=== PATIENT | female | born 1960 | race Hispanic/Latino ===

== ENCOUNTER → 2019-01-01 | Day surgery (SDC) | payer OTHER ==
[~2019-01-01] MED LIST: AZATHIOPRINE50 MG PO; FENTANYL CITRATE/PF 100MCG/2 ML INJ ONE; FOLIC ACID1 MG PO; GABAPENTIN PO; GLIMEPIRIDE4 MG PO; HYOSCYAMINE SULFATE 0.5 MG/ML INJ ONE; MELOXICAM PO; METFORMIN HCL500 MG PO; METOCLOPRAMIDE10 MG PO; METOTREXATE IM; MIDAZOLAM HCL 5 MG/ML VIAL ONE; PANTOPRAZOLE SO40 MG PO; PREDNISONE5 MG PO; PROPOFOL IV EMULSION 10 MG/ML 50 ML VIAL ONE; REGLAN PO; SUCRALFATE1 G/10 ML PO; Vit D PO; [UNRECOGNIZED DRUG - OTHER] PO
--- OUTSIDE RECORDS SUMMARY | 2019-01-01 09:54 | XMS REPORT ---
Author Benigno Goncalves [facility] eClinicalWorks Address Unknown Phone Unavailable Care Team Providers Care Associate Professor Of Counseling Name Role Phone Benigno Rahman Unavailable Allergies, Adverse Reactions, Alerts Substance Reaction Event Type N.K.D.A. Info Not Available Non Drug Allergy Problems Problem Type Condition Code Onset Dates Condition Status Problem Body mass index (BMI) 28.0-28.9, adult Z68.28 Active Problem Carpal tunnel syndrome, right upper limb G56.01 Active Problem Dry mouth, unspecified R68.2 Active Problem Osteoarthritis cervical spine M47.812 Active Problem Platelets decreased D69.6 Active Problem Low back pain M54.5 Active Problem Trochanteric bursitis, right hip M70.61 Active Problem Carpal tunnel syndrome, left upper limb G56.02 Active Problem Acute right-sided low back pain without sciatica M54.5 Active Problem Neck pain M54.2 Active Assessment Hip pain M25.559 Active Assessment Low back pain M54.5 Active Assessment Rheumatoid arthritis without rheumatoid factor, multiple sites M06.09 Active Problem Fibromyalgia M79.7 Active Assessment Neck pain M54.2 Active Problem Other jail (current) drug therapy Z79.899 Active Assessment Other jail (current) drug therapy Z79.899 Active Problem Rheumatoid arthritis without rheumatoid factor, multiple sites M06.09 Active Medications Medication Code System Code Instructions Start Date End Date Status Dosage Vitamin D [facility] [address]-84 1000 UNIT Orally Once a day Active 1 capsule PredniSONE [facility] 23553198190 5 MG Orally Once a day Active 1 tablet Metoclopramide HCl [facility] 76961630719 10 MG Orally twice a day Active 1 tablet Sucralfate [facility] 09902466734 1 GM Orally Twice a day Active 1 tablet on an empty stomach Vitamin B-12 ND 26368308403 1000 MCG Orally Once a day Active 1 tablet Iron [facility] 96527438924 325 (65 Fe) MG Orally Once a day Active 1 tablet Calcium NDC 0 1000 mg orally daily Active one tab Pantoprazole Sodium [facility] 49722301718 40 MG Orally Once a day Active 2 tablets Vital Signs Date/Time: Nov 25, 2017 BMI 25.52 Index Weight 144.1 lbs Height 63 in Temperature 97.6 F Cardiac Monitoring Heart Rate 72 /min Blood Pressure Diastolic 60 mm Hg Blood Pressure Systolic 110 mm Hg Results Name Result Date Reference Range Unit Abnormality Flag COMPREHENSIVE METABOLIC PANEL W/EGFR ----CALCIUM 9.1 65035059 8.6-10.4 mg/dL N ----CARBON DIOXIDE 29 20171125 20-31 mmol/L N ----ALT 13 20171125 6-29 U/L N ----CREATININE 0.53 20171125 0.50-1.05 mg/dL N ----AST 16 20171125 10-35 U/L N ----eGFR NON-AFR. GU[place]AN 107 [id number] > OR=60 mL/min/1.73m2 N ----ALKALINE PHOSPHATASE 77 20171125 33-130 U/L N ----eGFR 124 78039514 > OR=60 mL/min/1.73m2 N ----BILIRUBIN, TOTAL 1.2 37629656 0.2-1.2 mg/dL N ----BUN/CREATININE RATIO NOT APPLICABLE 20171125 6-22 (calc) ----ALBUMIN/GLOBULIN RATIO 1.4 87951628 1.0-2.5 (calc) N ----SODIUM 142 20171125 135-146 mmol/L N ----GLOBULIN 3.0 20171125 1.9-3.7 g/dL (calc) N ----POTASSIUM 3.8 20171125 3.5-5.3 mmol/L N ----GLUCOSE 88 94093750 65-99 mg/dL N ----CHLORIDE 106 20171125 98-110 mmol/L N ----ALBUMIN 4.1 10217694 3.6-5.1 g/dL N ----UREA NITROGEN (BUN) 12 20171125 7-25 mg/dL N ----PROTEIN, TOTAL 7.1 40990356 6.1-8.1 g/dL N SED RATE BY MODIFIED WESTERGREN ----SED RATE BY MODIFIED WESTERGREN 2 [id number] < OR=30 mm/h N C-REACTIVE PROTEIN ----C-REACTIVE PROTEIN 0.8 54689551 <8.0 mg/L N CBC (INCLUDES DIFF/PLT) ----MCH 29.1 56472643 27.0-33.0 pg N ----MCV 86.7 99859331 80.0-100.0 fL N ----RDW 14.0 79605239 11.0-15.0 % N ----MCHC 33.6 72207737 32.0-36.0 g/dL N ----EOSINOPHILS 0.8 57851719 % N ----BASOPHILS 0.3 33110007 % N ----MPV 10.3 74891197 7.5-12.5 fL N ----ABSOLUTE NEUTROPHILS 2088 68637362 4021-1313 cells/uL N ----PLATELET COUNT 97 10689537 140-400 Thousand/uL L ----ABSOLUTE EOSINOPHILS 29 77209743 15-500 cells/uL N ----HEMOGLOBIN 12.9 73087628 11.7-15.5 g/dL N ----ABSOLUTE BASOPHILS 11 64378160 0-200 cells/uL N ----HEMATOCRIT 38.4 05190034 35.0-45.0 % N ----WHITE BLOOD CELL COUNT 3.6 87941774 3.8-10.8 Thousand/uL L ----ABSOLUTE LYMPHOCYTES 1213 42498899 850-3900 cells/uL N ----ABSOLUTE MONOCYTES 259 32801449 200-950 cells/uL N ----RED BLOOD CELL COUNT 4.43 99182738 3.80-5.10 Million/uL N ----MONOCYTES 7.2 90484324 % N ----PLATELET ESTIMATION DECREASED 63027516 ADEQUATE A ----NEUTROPHILS 58 10092551 % N ----LYMPHOCYTES 33.7 57645795 % N Summary Purpose eClinicalWorks Submission
--- OUTSIDE RECORDS SUMMARY | 2019-01-01 09:54 | XMS REPORT ---
Author Benigno Goncalves [facility] eClinicalWorks Address Unknown Phone Unavailable Care Team Providers Care Restaurant Kitchen Manager Name Role Phone Benigno Rahman Unavailable Allergies, [...] Active Problem Neck pain M54.2 Active Assessment Rheumatoid arthritis without rheumatoid factor, multiple sites M06.09 Active Problem Fibromyalgia M79.7 Active Assessment Low back pain M54.5 Active Problem Other intermediate accountant (current) drug therapy Z79.899 Active Assessment Other correction (current) drug therapy Z79.899 Active Problem Rheumatoid arthritis without rheumatoid factor, multiple sites M06.09 Active Medications Medication Code System Code Instructions Start Date End Date Status Dosage Pantoprazole Sodium [facility] 59655639579 40 MG Orally Once a day Active 2 tablets Metoclopramide HCl [facility] 60247836201 10 MG Orally twice a day Active 1 tablet Vitamin B-12 ND 66268406307 1000 MCG Orally Once a day Active 1 tablet Vitamin D [facility] [address]-18 1000 UNIT Orally Once a day Active 1 capsule PredniSONE [facility] 02818240618 5 MG Orally Once a day Active 1 tablet Iron [facility] 39047567833 325 (65 Fe) MG Orally Once a day Active 1 tablet Sucralfate [facility] 91991786947 1 GM Orally Twice a day Active 1 tablet on an empty stomach Calcium NDC 0 1000 mg orally daily Active one tab Vital Signs Date/Time: March 10, 2018 BMI 28.52 Index Weight 161 lbs Height 63 in Temperature 97.4 F Cardiac Monitoring Heart Rate 80 /min Blood Pressure Diastolic 86 mm Hg Blood Pressure Systolic 118 mm Hg Results No Known Results Summary Purpose eClinicalWorks Submission
--- OUTSIDE RECORDS SUMMARY | 2019-01-01 09:54 | XMS REPORT ---
Author Author Benigno Rahman Organization eClinicalWorks Address Unknown Phone Unavailable Care Team Providers Care Classification Officer Name Role Phone Benigno Rahman CP Unavailable Allergies No Known Allergies Problems Problem Type Condition Code Onset Dates [...] M54.5 Active Problem Neck pain M54.2 Active Problem Fibromyalgia M79.7 Active Problem Other intermediate project manager (current) drug therapy Z79.899 Active Problem Rheumatoid arthritis without rheumatoid factor, multiple sites M06.09 Active Medications No Known Medications Results No Known Results Summary Purpose eClinicalWorks Submission
--- OUTSIDE RECORDS SUMMARY | 2019-01-01 09:54 | XMS REPORT ---
Author Author Benigno Rahman [facility] eClinicalWorks Address Unknown Phone Unavailable Care Team Providers Care Steam Tank Operator Name Role Phone Benigno Rahman Unavailable Allergies, [...] Active Problem Neck pain M54.2 Active Assessment Neck pain M54.2 Active Problem Fibromyalgia M79.7 Active Assessment Osteoarthritis cervical spine M47.812 Active Problem Other care home (current) drug therapy Z79.899 Active Assessment Rheumatoid arthritis without rheumatoid factor, multiple sites M06.09 Active Problem Rheumatoid arthritis without rheumatoid factor, multiple sites M06.09 Active Medications Medication Code System Code Instructions Start Date End Date Status Dosage Vitamin B-12 ND 61945052957 1000 MCG Orally Once a day Active 1 tablet Vitamin D [facility] [address]-17 1000 UNIT Orally Once a day Active 1 capsule Pantoprazole Sodium ND 77185403252 40 MG Orally Once a day Active 2 tablets Sulfasalazine ND 74927139724 500 MG Orally bid Aug 18, 2018 February 14, 2019 Active 2 tablets Sucralfate ND 54875674402 1 GM Orally Twice a day Active 1 tablet on an empty stomach Calcium NDC 0 1000 mg orally daily Active one tab PredniSONE ND 22443072938 5 MG Orally Once a day April 25, 2019 Active 1 tablet Metoclopramide HCl [facility] 85356641731 10 MG Orally twice a day Active 1 tablet Vital Signs Date/Time: Oct 27, 2018 BMI 30.23 Index Weight 170.7 lbs Height 63 in Temperature 97.2 F Cardiac Monitoring Heart Rate 74 /min Blood Pressure Diastolic 80 mm Hg Blood Pressure Systolic 120 mm Hg Results No Known Results Summary Purpose eClinicalWorks Submission
--- OUTSIDE RECORDS SUMMARY | 2019-01-01 09:54 | XMS REPORT | Continuity of Care Document ---
Author Author [facility] Interface Address Unknown Phone Unavailable Problems Problem Status Onset Date Classification Date Reported Comments Source 787.01 - NAUSEA WITH VOM Active 07/11/2012 [facility] Body mass index 28.0-28.9, adult Active Problem 11/05/2018 Jostin Rahman Carpal tunnel syndrome, right upper limb Active Problem 11/05/2018 Jostin Rahman Dry mouth, unspecified Active Problem 11/05/2018 Jostin Rahman Osteoarthritis cervical spine Active Problem 11/05/2018 Jostin Rahman Platelets decreased Active Problem 11/05/2018 Jostin Rahman Low back pain Active Problem 11/05/2018 Jostin Rahman Trochanteric bursitis, right hip Active Problem 11/05/2018 Jostin Rahman Carpal tunnel syndrome, left upper limb Active Problem 11/05/2018 Jostin Rahman Acute right-sided low back pain without sciatica Active Problem 11/05/2018 Jostin Rahman Neck pain Active Problem 11/05/2018 Jostin Rahman Fibromyalgia Active Problem 11/05/2018 Jostin Rahman Other skilled nursing drug therapy Active Problem 11/05/2018 Jostin Rahman Rheumatoid arthritis without rheumatoid factor, multiple sites Active Diagnosis 11/05/2018 Jostin Rahman Hip pain Active Diagnosis 12/14/2017 Jostin Rahman Medications Medication Details Route Status Patient Instructions Ordering Provider Order Date Source PredniSONE 1 tablet Orally Active 5 MG Orally Once a day [place] 04/25/2019 Jostin Rahman Sulfasalazine 2 tablets Orally Active 500 MG Orally bid Rahman 08/18/2018 Jostin Rahman Calcium one tab orally Active 1000 mg orally daily Rahman Jostin Rahman Vitamin D 1 capsule Orally Active 1000 UNIT Orally Once a day Rahman Jostin Rahman Metoclopramide HCl 1 tablet Orally Active 10 MG Orally twice a day Rahman Jostin Rahman Sucralfate 1 tablet on an empty stomach Orally Active 1 GM Orally Twice a day Rahman Jostin Rahman Pantoprazole Sodium 2 tablets Orally Active 40 MG Orally Once a day Rahmandouglas Rahman PredniSONE 1 tablet Orally Active 5 MG Orally Once a day Josiah Rahman Vitamin B-12 1 tablet Orally Active 1000 MCG Orally Once a day Josiah Rahman Iron 1 tablet Orally Active 325 (65 Fe) MG Orally Once a day Josiah Rahman Allergies, Adverse Reactions, Alerts Substance Category Reaction Severity Reaction type Status Date Reported Comments Source N.K.D.A. Adverse Reaction Info Not Available Adverse Reaction Active 10/27/2018 Jostin Rahman Immunizations Immunization Date Given Site Status Last Updated Comments Source Results Order Name Results Value Reference Range Date Interpretation Comments Source Chest 2 views Chest 2 views Exam: Two-view chest x-ray Reason for Exam: Obesity Comparison Exam: None Discussion: Cardiomediastinal silhouette is within normal limits. Both hemidiaphragms well visualized. No pulmonary edema or pleural effusions. No focal lung consolidations. Trachea is midline. No acute bony abnormalities. Impression: 1. Unremarkable Two-view chest x-ray. 10/22/2013 - - Read by: Alphonso Srinivasan Dictated Date/time: 10/22/13 14:44 Electronically Signed by: Alphonso Srinivasan MD 10/22/13 14:45 FINAL REPORT JUAN Guy Vital Signs Vital Sign Value Date Comments Source Weight 170.7 10/27/2018 Jostin [place]locker Height 63 10/27/2018 Jostin Rahman Temperature Oral (F) 97.2 F 10/27/2018 Jostin Rahman Heart Rate 74 10/27/2018 Jostin Rahman Diastolic (mm Hg) 80 10/27/2018 Jostin Rahman Systolic (mm Hg) 120 10/27/2018 Jostin Rahman Weight 171.1 08/18/2018 Jostin Rahman Height 63 08/18/2018 Jostin Rahman Temperature Oral (F) 97.2 F 08/18/2018 Jostin Rahman Heart Rate 76 08/18/2018 Jostin Rahman Diastolic (mm Hg) 74 08/18/2018 Jostin Rahman Systolic (mm Hg) 116 08/18/2018 Jostin Rahman Weight 161 03/10/2018 Jostin Rahman Height 63 03/10/2018 Jostin Rahman Temperature Oral (F) 97.4 F 03/10/2018 Jostin Rahman Heart Rate 80 03/10/2018 Jostin Rahman Diastolic (mm Hg) 86 03/10/2018 Jostin Rahman Systolic (mm Hg) 118 03/10/2018 Jostin Rahman Weight 144.1 11/25/2017 Jostin Rahman Height 63 11/25/2017 Jostin Rahman Temperature Oral (F) 97.6 F 11/25/2017 Jostin Rahman Heart Rate 72 11/25/2017 Jostin Rahman Diastolic (mm Hg) 60 11/25/2017 Jostin Rahman Systolic (mm Hg) 110 11/25/2017 Jostin Rahman Encounters Location Location Details Encounter Type Encounter Number Reason For Visit Attending Provider ADM Date DC Date Status Source OD [id number] 787.01 - NAUSEA WITH VOM [place]APO [place] 07/16/2012 Active [facility] [place] Procedures Procedure Code Date Perfomer Comments Source
--- OUTSIDE RECORDS SUMMARY | 2019-01-01 09:54 | XMS REPORT ---
Author Author Benigno Rahman [facility] eClinicalWorks Address Unknown Phone Unavailable Care Team Providers Care Welt Trimming Machine Operator Name Role Phone Benigno Rahman Unavailable [...] Active Problem Neck pain M54.2 Active Assessment Osteoarthritis cervical spine M47.812 Active Assessment Other correction (current) drug therapy Z79.899 Active Assessment Low back pain M54.5 Active Assessment Rheumatoid arthritis without rheumatoid factor, multiple sites M06.09 Active Problem Fibromyalgia M79.7 Active Assessment Fibromyalgia M79.7 Active Problem Other marine oil terminal superintendent (current) drug therapy Z79.899 Active Assessment Neck pain M54.2 Active Problem Rheumatoid arthritis without rheumatoid factor, multiple sites M06.09 Active Medications Medication Code System Code Instructions Start Date End Date Status Dosage Calcium NDC 0 1000 mg orally daily Active one tab Vitamin D [facility] [address]-83 1000 UNIT Orally Once a day Active 1 capsule Metoclopramide HCl [facility] 11217631532 10 MG Orally twice a day Active 1 tablet Sulfasalazine ND 83574737305 500 MG Orally bid Aug 18, 2018 February 14, 2019 Active 1 tablet Sucralfate ND 24312055596 1 GM Orally Twice a day Active 1 tablet on an empty stomach Pantoprazole Sodium [facility] 45207132646 40 MG Orally Once a day Active 2 tablets PredniSONE ND 59051043511 5 MG Orally Once a day Active 1 tablet Vitamin B-12 [facility] 34126810387 1000 MCG Orally Once a day Active 1 tablet Vital Signs Date/Time: Aug 18, 2018 BMI 30.31 Index Weight 171.1 lbs Height 63 in Temperature 97.2 F Cardiac Monitoring Heart Rate 76 /min Blood Pressure Diastolic 74 mm Hg Blood Pressure Systolic 116 mm Hg Results No Known Results Summary Purpose eClinicalWorks Submission
--- OUTSIDE RECORDS SUMMARY | 2019-01-01 09:54 | XMS REPORT ---
Author Author Benigno Rahman Organization eClinicalWorks Address Unknown Phone Unavailable Care Team Providers Care Lobster Fisherman Name Role Phone Benigno Rahman CP Unavailable [...] Active Problem Fibromyalgia M79.7 Active Problem Other terminal carman (current) drug therapy Z79.899 Active Problem Rheumatoid arthritis without rheumatoid factor, multiple sites M06.09 Active Medications No Known Medications Results No Known Results Summary Purpose eClinicalWorks Submission
--- OUTSIDE RECORDS SUMMARY | 2019-01-01 09:54 | XMS REPORT ---
Author Author Benigno Rahman Organization eClinicalWorks Address Unknown Phone Unavailable Care Team Providers Care Stamp Machine Servicer Name Role Phone Benigno Rahman CP Unavailable [...] Active Problem Fibromyalgia M79.7 Active Problem Other senior benefits specialist (current) drug therapy Z79.899 Active Problem Rheumatoid arthritis without rheumatoid factor, multiple sites M06.09 Active Medications No Known Medications Results No Known Results Summary Purpose eClinicalWorks Submission
--- OUTSIDE RECORDS SUMMARY | 2019-01-01 09:55 | XMS REPORT ---
Author Author [facility] Address Unknown Phone Unavailable Care Team Providers Care [employer] Name Role Phone UNKNOWN, REFFERING PP Unavailable Rae TOVAR Unavailable Unavailable Problems This patient has no known problems. Allergies, Adverse Reactions, Alerts This patient has no known allergies or adverse reactions. Medications This patient has no known medications. Results Test Description Test Time Test Comments Text Results Atomic Results Result Comments RBC, Crossmatch 2 2017-07-07 00:13:00 Product 1 Code (test code=PRODCODE1) E0336 Unit 1 ID (test code=UNITID1) [id number] Unit 1 ABO (test code=UNITABO1) B Unit 1 Rh (test code=UNITRH1) POS Unit 1 Interp (test code=UNITINTERP1) Compatible Unit 1 Status (test code=UNITSTAT1) RE Product 2 Code (test code=PRODCODE2) E0336 Unit 2 ID (test code=UNITID2) [id number] Unit 2 ABO (test code=UNITABO2) B Unit 2 Rh (test code=UNITRH2) POS Unit 2 Interp (test code=UNITINTERP2) Compatible Unit 2 Status (test code=UNITSTAT2) RE POC Glucose, [id number] 16:37:00* Test Item Value Reference Range Comments POC Glucose (test code=POCGLUC) 112 mg/dL 70-115 If you consider your patient critically ill, the [employer] Accu-Chek InformII metershould not be used for Glucose determinations.Draw a venous Glucose and send to the Main Lab for Analysis. POC Glucose, [id number] 13:44:00* Test Item Value Reference Range Comments POC Glucose (test code=POCGLUC) 131 mg/dL 70-115 If you consider your patient critically ill, the [employer] Accu-Chek InformII metershould not be used for Glucose determinations.Draw a venous Glucose and send to the Main Lab for Analysis. POC Glucose, [id number] 09:10:00* Test Item Value Reference Range Comments POC Glucose (test code=POCGLUC) 220 mg/dL 70-115 Notify RN or MDIf you consider your patient critically ill, the [employer] Accu-Chek InformII metershould not be used for Glucose determinations.Draw a venous Glucose and send to the Main Lab for Analysis. POC Glucose, [id number] 07:45:00* Test Item Value Reference Range Comments POC Glucose (test code=POCGLUC) 115 mg/dL 70-115 If you consider your patient critically ill, the [employer] Accu-Chek InformII metershould not be used for Glucose determinations.Draw a venous Glucose and send to the Main Lab for Analysis. CBC with [id number] 05:56:00* Test Item Value Reference Range Comments WBC (test code=WBC) 4.4 K/cumm 4.4-10.5 RBC (test code=RBC) 3.82 M/cumm 3.75-5.20 Hemoglobin (test code=HGB) 10.9 gm/dL 12.2-14.8 Hematocrit (test code=HCT) 32.3 % 36.5-44.4 MCV (test code=MCV) 84.6 fL 80-100 MCH (test code=MCH) 28.5 pg 27.0-32.5 MCHC (test code=MCHC) 33.7 g/dL 32.0-37.5 RDW (test code=RDW) 16.3 % 11.5-14.5 Platelet Count (test code=PLTCT) 135 K/cumm 140-440 MPV (test code=MPV) 8.6 fL Diff Method (test code=DIFFM) Auto Neutrophil (test code=NEUT) 84.8 % 36-70 Lymphocyte (test code=LYMPH) 11.1 % 12-44 Monocyte (test code=MONO) 3.6 % 0-11 Eosinophil (test code=EOS) 0.5 % 0-7 Basophil (test code=BASO) 0.0 % 0-2 Neutro Abs (test code=ANEUT) 3.7 K/cumm 1.6-7.4 Lymph Abs (test code=ALYMPH) 0.5 K/cumm 0.5-4.6 Mcintosh Abs (test code=AMONO) 0.2 K/cumm 0.0-1.2 Eos Abs (test code=AEOS) 0.02 K/cumm 0.00-0.74 Baso Abs (test code=ABASO) 0.0 K/cumm 0.00-0.21 POC Glucose, [id number] 05:16:00* Test Item Value Reference Range Comments POC Glucose (test code=POCGLUC) 138 mg/dL 70-115 If you consider your patient critically ill, the [employer] Accu-Chek InformII metershould not be used for Glucose determinations.Draw a venous Glucose and send to the Main Lab for Analysis. POC Glucose, [id number] 00:54:00* Test Item Value Reference Range Comments POC Glucose (test code=POCGLUC) 168 mg/dL 70-115 If you consider your patient critically ill, the [employer] Accu-Chek InformII metershould not be used for Glucose determinations.Draw a venous Glucose and send to the Main Lab for Analysis. POC Glucose, [id number] 21:52:00* Test Item Value Reference Range Comments POC Glucose (test code=POCGLUC) 137 mg/dL 70-115 If you consider your patient critically ill, the [employer] Accu-Chek InformII metershould not be used for Glucose determinations.Draw a venous Glucose and send to the Main Lab for Analysis. CBC with [id number] 10:24:00* Test Item Value Reference Range Comments WBC (test code=WBC) 5.2 K/cumm 4.4-10.5 RBC (test code=RBC) 4.12 M/cumm 3.75-5.20 Hemoglobin (test code=HGB) 11.9 gm/dL 12.2-14.8 Hematocrit (test code=HCT) 35.1 % 36.5-44.4 MCV (test code=MCV) 85.2 fL 80-100 MCH (test code=MCH) 28.8 pg 27.0-32.5 MCHC (test code=MCHC) 33.8 g/dL 32.0-37.5 RDW (test code=RDW) 16.6 % 11.5-14.5 Platelet Count (test code=PLTCT) 116 K/cumm 140-440 MPV (test code=MPV) 8.8 fL Diff Method (test code=DIFFM) Auto Neutrophil (test code=NEUT) 74.3 % 36-70 Lymphocyte (test code=LYMPH) 17.6 % 12-44 Monocyte (test code=MONO) 7.2 % 0-11 Eosinophil (test code=EOS) 0.8 % 0-7 Basophil (test code=BASO) 0.1 % 0-2 Neutro Abs (test code=ANEUT) 3.8 K/cumm 1.6-7.4 Lymph Abs (test code=ALYMPH) 0.9 K/cumm 0.5-4.6 Mcintosh Abs (test code=AMONO) 0.4 K/cumm 0.0-1.2 Eos Abs (test code=AEOS) 0.04 K/cumm 0.00-0.74 Baso Abs (test code=ABASO) 0.0 K/cumm 0.00-0.21 Plateletpheresis 1 [id number] 06:00:00* Test Item Value Reference Range Comments Product 1 Code (test code=PRODCODE1) E3088 Unit 1 ID (test code=UNITID1) [id number] Unit 1 ABO (test code=UNITABO1) AB Unit 1 Rh (test code=UNITRH1) POS Unit 1 Status (test code=UNITSTAT1) PT POC Glucose, [id number] 21:07:00* Test Item Value Reference Range Comments POC Glucose (test code=POCGLUC) 155 mg/dL 70-115 If you consider your patient critically ill, the [employer] Accu-Chek InformII metershould not be used for Glucose determinations.Draw a venous Glucose and send to the Main Lab for Analysis. POC Glucose, [id number] 09:28:00* Test Item Value Reference Range Comments POC Glucose (test code=POCGLUC) 122 mg/dL 70-115 If you consider your patient critically ill, the [employer] Accu-Chek InformII metershould not be used for Glucose determinations.Draw a venous Glucose and send to the Main Lab for Analysis. Plateletpheresis 1 [id number] 06:00:00* Test Item Value Reference Range Comments Product 1 Code (test code=PRODCODE1) E3087 Unit 1 ID (test code=UNITID1) [id number] Unit 1 ABO (test code=UNITABO1) B Unit 1 Rh (test code=UNITRH1) POS Unit 1 Status (test code=UNITSTAT1) PT POC Glucose, [id number] 05:47:00* Test Item Value Reference Range Comments POC Glucose (test code=POCGLUC) 122 mg/dL 70-115 If you consider your patient critically ill, the [employer] Accu-Chek InformII metershould not be used for Glucose determinations.Draw a venous Glucose and send to the Main Lab for Analysis. Basic Metabolic [id number] 04:49:00* Test Item Value Reference Range Comments Sodium (test code=NA) 139 mmol/L 135-145 Potassium (test code=K) 3.8 mmol/L 3.5-5.1 Chloride (test code=CL) 102 mmol/L 98-105 Carbon Dioxide (test code=CO2) 25 mmol/L 22-29 Glucose (test code=GLU) 119 mg/dL 70-115 Blood Urea Nitrogen (test code=BUN) 5 mg/dL 6-20 Creatinine (test code=CREAT) 0.6 mg/dL 0.5-0.9 Calcium (test code=CA) 8.7 mg/dL 8.3-10.5 BUN/Creatinine Ratio (test code=BCRATIO) 8.3 Anion Gap (test code=AGAP) 12 mmol/L 7-16 Estimated GFR (test code=GFR) >60 mL/min/1.73m2 eGFR (estimated Glomerular Filtration Rate) is an estimated value,calculated from the patient's serum creatinine using the MDRD equation.It is NOT the patient's actual GFR. The eGFR provides a more clinicallyuseful measure of kidney disease than serum creatinine alone.This calculation takes sex and race into account, if the informationis provided. If the race is not provided, and the patient isAfrican-[place]anaian, multiply by 1.212. If sex is not provided, and thepatient is female, multiply by 0.742. Results for patients <18 years ofage have not been validated by the MDRD study and should be interpretedwith caution.eGFR Result Interpretation:eGFR > or=60 is in the Normal RangeeGFR < 60 may mean kidney diseaseeGFR < 15 may mean kidney failureRanges recommended by the National Kidney Foundat ion,http://nkdep.nih.gov CBC with [id number] 04:33:00* Test Item Value Reference Range Comments WBC (test code=WBC) 4.4 K/cumm 4.4-10.5 RBC (test code=RBC) 3.54 M/cumm 3.75-5.20 Hemoglobin (test code=HGB) 10.2 gm/dL 12.2-14.8 Hematocrit (test code=HCT) 29.2 % 36.5-44.4 MCV (test code=MCV) 82.7 fL 80-100 MCH (test code=MCH) 28.9 pg 27.0-32.5 MCHC (test code=MCHC) 35.0 g/dL 32.0-37.5 RDW (test code=RDW) 15.0 % 11.5-14.5 Platelet Count (test code=PLTCT) 98 K/cumm 140-440 MPV (test code=MPV) 7.4 fL Diff Method (test code=DIFFM) Auto Neutrophil (test code=NEUT) 86.0 % 36-70 Lymphocyte (test code=LYMPH) 7.3 % 12-44 Monocyte (test code=MONO) 4.7 % 0-11 Eosinophil (test code=EOS) 1.9 % 0-7 Basophil (test code=BASO) 0.1 % 0-2 Neutro Abs (test code=ANEUT) 3.8 K/cumm 1.6-7.4 Lymph Abs (test code=ALYMPH) 0.3 K/cumm 0.5-4.6 Mcintosh Abs (test code=AMONO) 0.2 K/cumm 0.0-1.2 Eos Abs (test code=AEOS) 0.08 K/cumm 0.00-0.74 Baso Abs (test code=ABASO) 0.0 K/cumm 0.00-0.21 POC Glucose, [id number] 02:16:00* Test Item Value Reference Range Comments POC Glucose (test code=POCGLUC) 106 mg/dL 70-115 If you consider your patient critically ill, the [employer] Accu-Chek InformII metershould not be used for Glucose determinations.Draw a venous Glucose and send to the Main Lab for Analysis. POC Glucose, [id number] 21:51:00* Test Item Value Reference Range Comments POC Glucose (test code=POCGLUC) 119 mg/dL 70-115 If you consider your patient critically ill, the [employer] Accu-Chek InformII metershould not be used for Glucose determinations.Draw a venous Glucose and send to the Main Lab for Analysis. POC Glucose, [id number] 17:31:00* Test Item Value Reference Range Comments POC Glucose (test code=POCGLUC) 132 mg/dL 70-115 If you consider your patient critically ill, the [employer] Accu-Chek InformII metershould not be used for Glucose determinations.Draw a venous Glucose and send to the Main Lab for Analysis. XR SPINE, CERVICAL 1 [id number] 17:21:33Radiographic Assistance:LOCATION: [id number]: [facility].02: SPINAL STENOSIS, CERVICAL REGIONDISCUSSION:Radiographic assistance was provided. Intraprocedural lateral cervicalspine radiograph was interpreted by the performing physician. Pleaserefer to the referring physician's procedure note/operative report forcomplete detail. Hemogram 2017-07-03 15:42:00* Test Item Value Reference Range Comments WBC (test code=WBC) 5.0 K/cumm 4.4-10.5 RBC (test code=RBC) 3.73 M/cumm 3.75-5.20 Hemoglobin (test code=HGB) 10.4 gm/dL 12.2-14.8 Hematocrit (test code=HCT) 31.4 % 36.5-44.4 MCV (test code=MCV) 84.4 fL 80-100 MCH (test code=MCH) 27.8 pg 27.0-32.5 MCHC (test code=MCHC) 33.0 g/dL 32.0-37.5 RDW (test code=RDW) 16.4 % 11.5-14.5 Platelet Count (test code=PLTCT) 89 K/cumm 140-440 MPV (test code=MPV) 8.4 fL POC Glucose, [id number] 14:33:00* Test Item Value Reference Range Comments POC Glucose (test code=POCGLUC) 172 mg/dL 70-115 If you consider your patient critically ill, the [employer] Accu-Chek InformII metershould not be used for Glucose determinations.Draw a venous Glucose and send to the Main Lab for Analysis. Antibody Screen - [id number] 10:37:00* Test Item Value Reference Range Comments Antibody Screen (test code=ABSCR) Negative Blood Type and [id number] 10:34:00* Test Item Value Reference Range Comments ABO type (test code=ABO) B Rh Type (test code=RH) Positive CBC with [id number] 07:49:00* Test Item Value Reference Range Comments WBC (test code=WBC) 3.1 K/cumm 4.4-10.5 RBC (test code=RBC) 3.64 M/cumm 3.75-5.20 Hemoglobin (test code=HGB) 10.7 gm/dL 12.2-14.8 Hematocrit (test code=HCT) 30.3 % 36.5-44.4 MCV (test code=MCV) 83.1 fL 80-100 MCH (test code=MCH) 29.4 pg 27.0-32.5 MCHC (test code=MCHC) 35.4 g/dL 32.0-37.5 RDW (test code=RDW) 15.0 % 11.5-14.5 Platelet Count (test code=PLTCT) 73 K/cumm 140-440 MPV (test code=MPV) 7.7 fL Diff Method (test code=DIFFM) Auto Neutrophil (test code=NEUT) 57.8 % 36-70 Lymphocyte (test code=LYMPH) 33.6 % 12-44 Monocyte (test code=MONO) 6.6 % 0-11 Eosinophil (test code=EOS) 1.9 % 0-7 Basophil (test code=BASO) 0.2 % 0-2 Neutro Abs (test code=ANEUT) 1.8 K/cumm 1.6-7.4 Lymph Abs (test code=ALYMPH) 1.0 K/cumm 0.5-4.6 Mcintosh Abs (test code=AMONO) 0.2 K/cumm 0.0-1.2 Eos Abs (test code=AEOS) 0.06 K/cumm 0.00-0.74 Baso Abs (test code=ABASO) 0.0 K/cumm 0.00-0.21 Lipid [id number] 12:52:00* Test Item Value Reference Range Comments Cholesterol (test code=CHOL) 146 mg/dL 0-200 Triglycerides (test code=TRIG) 69 mg/dL 9-200 HDL (test code=HDL) 77 mg/dL 50-60 Chol/HDL (test code=CHOLPHDL) 1.9 Ratio 0.0-4.4 LDL, Calculated (test code=LDLC) 55 0-130 (NOTE)RISK OF HEART DISEASEPublished by Ghanaian Heart AssociationAnalyte Optimal Boderline Increased RiskCHOL <200 200-239 >240TRIG <150 150- 199 >200HDL Male: >60 <40HDL Female: >60 <50LDL <100 130-159 >160LDL NEAR OPTIMAL IS 100-129 VLDL (test code=VLDL) 14 mg/dL 5-40 LDL/HDL (test code=LDLPHDL) 1 Basic Metabolic [id number] 12:52:00* Test Item Value Reference Range Comments Sodium (test code=NA) 140 mmol/L 135-145 Potassium (test code=K) 3.3 mmol/L 3.5-5.1 Chloride (test code=CL) 101 mmol/L 98-105 Carbon Dioxide (test code=CO2) 26 mmol/L 22-29 Glucose (test code=GLU) 79 mg/dL 70-115 Blood Urea Nitrogen (test code=BUN) 8 mg/dL 6-20 Creatinine (test code=CREAT) 0.7 mg/dL 0.5-0.9 Calcium (test code=CA) 9.4 mg/dL 8.3-10.5 BUN/Creatinine Ratio (test code=BCRATIO) 11.4 Anion Gap (test code=AGAP) 13 mmol/L 7-16 Estimated GFR (test code=GFR) >60 mL/min/1.73m2 eGFR (estimated Glomerular Filtration Rate) is an estimated value,calculated from the patient's serum creatinine using the MDRD equation.It is NOT the patient's actual GFR. The eGFR provides a more clinicallyuseful measure of kidney disease than serum creatinine alone.This calculation takes sex and race into account, if the informationis provided. If the race is not provided, and the patient isAfrican-Ghanaian, multiply by 1.212. If sex is not provided, and thepatient is female, multiply by 0.742. Results for patients <18 years ofage have not been validated by the MDRD study and should be interpretedwith caution.eGFR Result Interpretation:eGFR > or=60 is in the Normal RangeeGFR < 60 may mean kidney diseaseeGFR < 15 may mean kidney failureRanges recommended by the National Kidney Foundat ion,http://nkdep.nih.gov Comprehensive Metabolic [id number] 12:52:00* Test Item Value Reference Range Comments Sodium (test code=NA) 140 mmol/L 135-145 Potassium (test code=K) 3.3 mmol/L 3.5-5.1 Chloride (test code=CL) 101 mmol/L 98-105 Carbon Dioxide (test code=CO2) 26 mmol/L 22-29 Glucose (test code=GLU) 79 mg/dL 70-115 Blood Urea Nitrogen (test code=BUN) 8 mg/dL 6-20 Creatinine (test code=CREAT) 0.7 mg/dL 0.5-0.9 Calcium (test code=CA) 9.4 mg/dL 8.3-10.5 Prot Total (test code=TP) 7.4 g/dL 6.4-8.3 Albumin (test code=ALB) 4.6 g/dL 3.5-5.2 A/G Ratio (test code=AGRATIO) 1.6 Ratio Globulin (test code=GLOB) 2.8 2.9-3.1 Bili Total (test code=TBIL) 2.0 mg/dL 0.1-0.9 Alk Phos (test code=APHOS) 58 U/L 35-104 AST (test code=AST) 18 U/L 1-32 ALT (test code=ALT) 12 U/L 1-33 BUN/Creatinine Ratio (test code=BCRATIO) 11.4 Anion Gap (test code=AGAP) 13 mmol/L 7-16 Estimated GFR (test code=GFR) >60 mL/min/1.73m2 eGFR (estimated Glomerular Filtration Rate) is an estimated value,calculated from the patient's serum creatinine using the MDRD equation.It is NOT the patient's actual GFR. The eGFR provides a more clinicallyuseful measure of kidney disease than serum creatinine alone.This calculation takes sex and race into account, if the informationis provided. If the race is not provided, and the patient isAfrican-Ghanaian, multiply by 1.212. If sex is not provided, and thepatient is female, multiply by 0.742. Results for patients <18 years ofage have not been validated by the MDRD study and should be interpretedwith caution.eGFR Result Interpretation:eGFR > or=60 is in the Normal RangeeGFR < 60 may mean kidney diseaseeGFR < 15 may mean kidney failureRanges recommended by the National Kidney Foundat ion,http://nkdep.nih.gov Urinalysis [id number] 12:52:00* Test Item Value Reference Range Comments Color (test code=COLOR) Yellow Yellow,Straw,Pl yellow Clarity (test code=CLAR) Clear Clear Specific [place] (test code=SPGR) 1.007 1.001-1.035 pH (test code=PH) 7.0 5.0-9.0 Ketone (test code=KET) Negative mg/dL Negative Glucose (test code=GLUCUR) Negative mg/dL Negative Protein (test code=PROT) Negative mg/dL Negative Bilirubin (test code=BILI) Negative mg/dL Negative Occult Blood (test code=UDOB) Negative Negative Urobilinogen (test code=UROB) 0.2 mg/dL 0.2-1.0 Nitrite (test code=NIT) Negative Negative Leuk Esterase (test code=LEUK) Small Negative Micros Exam (test code=MEXAM) Indicated Epithelial Cells (test code=EPI) 6-9 /LPF 0-30 WBC, Urine (test code=UWBC) 0-5 /HPF 0-5 RBC, Urine (test code=URBC) None Seen /HPF 0-5 Bacteria (test code=BACT) Few /HPF Prothrombin [id number] 12:48:00* Test Item Value Reference Range Comments PT (test code=PT) 11.60 seconds 9.78-13.35 INR (test code=INR) 1.02 Ratio 0.6-1.2 Partial Thromboplastin [id number] 12:48:00* Test Item Value Reference Range Comments aPTT (test code=PTT) 28.70 seconds 24.39-37.25 CBC with [id number] 12:41:00* Test Item Value Reference Range Comments WBC (test code=WBC) 3.9 K/cumm 4.4-10.5 RBC (test code=RBC) 4.30 M/cumm 3.75-5.20 Hemoglobin (test code=HGB) 12.8 gm/dL 12.2-14.8 Hematocrit (test code=HCT) 36.2 % 36.5-44.4 MCV (test code=MCV) 84.3 fL 80-100 MCH (test code=MCH) 29.7 pg 27.0-32.5 MCHC (test code=MCHC) 35.3 g/dL 32.0-37.5 RDW (test code=RDW) 14.9 % 11.5-14.5 Platelet Count (test code=PLTCT) 84 K/cumm 140-440 MPV (test code=MPV) 8.6 fL Diff Method (test code=DIFFM) Auto Neutrophil (test code=NEUT) 53.8 % 36-70 Lymphocyte (test code=LYMPH) 35.1 % 12-44 Monocyte (test code=MONO) 7.1 % 0-11 Eosinophil (test code=EOS) 4.0 % 0-7 Basophil (test code=BASO) 0.1 % 0-2 Neutro Abs (test code=ANEUT) 2.1 K/cumm 1.6-7.4 Lymph Abs (test code=ALYMPH) 1.4 K/cumm 0.5-4.6 Mcintosh Abs (test code=AMONO) 0.3 K/cumm 0.0-1.2 Eos Abs (test code=AEOS) 0.16 K/cumm 0.00-0.74 Baso Abs (test code=ABASO) 0.0 K/cumm 0.00-0.21
[2019-01-01 14:18] VITALS: BP 129/89
--- NOTE | 2019-01-01 14:52 | Operative Report ---
DATE OF PROCEDURE: January 01, 2019 REFERRING PHYSICIAN: Dr. Rigoberto Porras PROCEDURES PERFORMED 1. Esophagogastroduodenoscopy with biopsies. 2. Colonoscopy with polypectomy. INDICATIONS FOR EGD: Dyspepsia. INDICATIONS FOR COLONOSCOPY: Surveillance colonoscopy and personal history of colon polyps. MEDICATION: Patient was done under MAC. Please see anesthesiologist's note. PROCEDURE: With the patient in the left lateral decubitus position, the flexible fiberoptic Olympus gastroscope was introduced into the esophagus under direct visualization without any difficulty. There was some patchy erythema noted in the distal esophagus. The scope was then advanced with ease into the stomach. Mucosa overlying the antrum and the body revealed some patchy erythema, low-grade to moderate edema and biopsies were obtained and sent to stain for H. pylori. Minute hyperplastic appearing polyps were noted primarily in the body of the stomach and some were partially excised with cold biopsy forceps. The pylorus was of normal contour and shape. It was intubated with ease. The scope was advanced all the way to the 2nd portion of the duodenum. The scope was then withdrawn slowly. Mucosa overlying the proximal 2nd portion and the duodenal bulb appeared to be within normal limits. The scope was then withdrawn back into the stomach and retroflexed. The mucosa overlying the fundus and the cardia appeared to be within normal limits. The scope was then straightened out. The stomach was decompressed. The scope was subsequently withdrawn. Patient tolerated the procedure well. IMPRESSION 1. Mild distal esophagitis. 2. Gastritis, biopsied. Biopsies sent to stain for Helicobacter pylori. 3. Gastric polyps, body, some partially excised with the cold biopsy forceps. PLAN: Follow up histology. Continue Protonix 40 mg 1 p.o. a.c. b.i.d. and Carafate 1 g p.o. a.c. t.i.d. and at bedtime, and Reglan 10 mg 1 p.o. a.c. t.i.d. and at bedtime. Patient was then turned around. After adequate lubrication of the anal canal, a flexible fiberoptic Olympus colonoscope was inserted into the rectum with ease and advanced all the way to the ileocolic anastomosis. The anastomosis appeared to be intact. The scope was then withdrawn slowly, and the mucosa overlying the transverse and descending appeared to be within normal limits. Minimal diverticulosis was noted in the sigmoid colon. Two polyps were hot biopsied from the rectum. The scope was then retroflexed into the distal rectum and small internal hemorrhoids were noted along with some hypertrophied anal papillae. The scope was then straightened out. It was subsequently withdrawn. Patient tolerated the procedure well. IMPRESSION 1. Ileocolic anastomosis intact. 2. Diverticulosis, minimal, sigmoid colon. 3. Rectal polyps times 2, hot biopsied. 4. Small internal hemorrhoids, none actively bleeding. PLAN: Follow up histology. Initiate high-fiber and low-fat diet. Initiate high-fiber supplement. Patient might benefit from a followup colonoscopy in 3 to 5 years. Job#: [id number] RI cc:RIGOBERTO PORRAS MD
== END | disposition home or self-care (01) ==
LOC: OR 09:52
PROVIDERS: ATTEND Internal Medicine Gastroenterology
DX: K21.0 Gastro-esophageal reflux disease with esophagitis (principal); K62.1 Rectal polyp; K31.7 Polyp of stomach and duodenum; K29.60 Other gastritis without bleeding; Z98.0 Intestinal bypass and anastomosis status; K51.90 Ulcerative colitis, unspecified, without complications; K57.30 Diverticulosis of large intestine without perforation or abscess without bleeding; K62.89 Other specified diseases of anus and rectum; K64.8 Other hemorrhoids; D64.9 Anemia, unspecified; M19.90 Unspecified osteoarthritis, unspecified site; E11.9 Type 2 diabetes mellitus without complications; Z01.810 Encounter for preprocedural cardiovascular examination; Z68.31 Body mass index [BMI] 31.0-31.9, adult; Z90.49 Acquired absence of other specified parts of digestive tract
CPT/HCPCS: 43239; 45384; 93005; J1980; J2250; J2704; 45378

== ENCOUNTER → 2019-03-18 | Outpatient (CLI) | payer OTHER ==
[~2019-03-18] MED LIST changes: -FENTANYL CITRATE/PF 100MCG/2 ML INJ ONE; -HYOSCYAMINE SULFATE 0.5 MG/ML INJ ONE; -MIDAZOLAM HCL 5 MG/ML VIAL ONE; -PROPOFOL IV EMULSION 10 MG/ML 50 ML VIAL ONE
--- NOTE | 2019-03-18 13:02 | Diagnostic Imaging Report ---
EXAM: US ABDOMEN COMPLETE DATE: 03/18/2019 11:23 AM Time stamp on exam: INDICATION: Fatty liver, splenomegaly COMPARISON: None TECHNIQUE: Transverse and longitudinal ovalle scale and color doppler sonographic images of the upper abdomen were obtained. FINDINGS: LIVER 13 cm in the right midclavicular line. Normal echogenicity, normal contour, no masses. SPLEEN 14.8 cm in maximum diameter. Normal echogenicity, no masses. GALLBLADDER Removed BILE DUCTS No intra nor extra-hepatic biliary dilation. Common bile duct measures 0.3 cm PANCREAS: Visualized portions are normal. RIGHT KIDNEY: 12 cm Echogenicity: Normal Collecting System: No hydronephrosis Stones: None Cyst/Mass: None LEFT KIDNEY: 11.5 cm Echogenicity: Normal Collecting System: No hydronephrosis Stones: None Cyst/Mass: None VESSELS: Aorta: Nonaneurysmal Inferior Vena Cava: Patent Main Portal Vein: 1 cm in caliber, normal size with hepatopetal flow. FREE FLUID: None IMPRESSION: Mild splenomegaly (14.8 cm in maximum dimension) Otherwise unremarkable abdominal ultrasound. Signed by: Dr. Sundar Rock M.D. on 03/18/2019 12:58 PM
== END ==
LOC: US 11:18
PROVIDERS: ATTEND Internal Medicine Gastroenterology
DX: K76.0 Fatty (change of) liver, not elsewhere classified (principal); R16.1 Splenomegaly, not elsewhere classified
CPT/HCPCS: 76700

== ENCOUNTER → 2022-04-04 | Day surgery (SDC) | payer OTHER ==
[~2022-04-04] MED LIST changes: +CALCIUM ACETAT667 MG PO; +FENTANYL CITRATE/PF 100MCG/2 ML INJ ONE; +HYOSCYAMINE SULFATE 0.5 MG/ML INJ ONE; +LIDOCAINE HCL 2% LOCAL INJ 5 ML SDV VIAL INJ ONE; +MIDAZOLAM HCL 2 MG/2 ML VIAL ONE; +MULTI-VITAMIN1 EACH PO; +OSTEO BI-FLEX1 EAC2 PO; +PROPOFOL IV EMULSION 10 MG/ML 20 ML VIAL ONE
[2022-04-04 10:45] VITALS: BP 143/98
[2022-04-04 13:23] LABS: WBC,FECAL (FECAL LACTOFERRIN) POSITIVE (NEGATIVE)
[2022-04-04 15:02] LABS: C DIFFICILE TOXIN A&B AMP PROB NEGATIVE (NEGATIVE)
== END | disposition home or self-care (01) ==
LOC: OR 07:14
PROVIDERS: ATTEND Internal Medicine Gastroenterology
DX: K52.9 Noninfective gastroenteritis and colitis, unspecified (principal); Z86.010 Personal history of colon polyps; K62.89 Other specified diseases of anus and rectum; Z98.0 Intestinal bypass and anastomosis status; K57.30 Diverticulosis of large intestine without perforation or abscess without bleeding; K64.8 Other hemorrhoids; K21.9 Gastro-esophageal reflux disease without esophagitis; M79.7 Fibromyalgia; M06.9 Rheumatoid arthritis, unspecified; E11.9 Type 2 diabetes mellitus without complications; Z01.810 Encounter for preprocedural cardiovascular examination; Z01.812 Encounter for preprocedural laboratory examination; Z20.822 Contact with and (suspected) exposure to COVID-19; Z79.899 Other long term (current) drug therapy
CPT/HCPCS: 36415; 45380; 82948; 83036; 83630; 83993; 87045; 87177; 87328; 87493; 93005; J1980; J2001; J2250; J2704; J3010; U0002; 45378